=== PATIENT | male | born 1980 | race Caucasian/White ===

== ENCOUNTER 2021-08-21 07:18 | Emergency (ER) | payer OTHER ==
[2021-08-21] MEDS ORDERED: Aspirin 81 MG Tab.Chew PO STA (07:42)
== END 2021-08-21 08:40 | disposition home or self-care (01) ==
LOC: FB.ED 07:18
DX: R07.89 Other chest pain (principal); F41.1 Generalized anxiety disorder; F17.210 Nicotine dependence, cigarettes, uncomplicated; Z79.899 Other long term (current) drug therapy
CPT/HCPCS: 36415; 71045; 80053; 84484; 85025; 85379; 85610; 85730; 93005; 93010; 99284; 99285-25